=== PATIENT | male | born 1995 | race African-American/Black ===

== ENCOUNTER 2023-02-12 00:35 | Inpatient (IN) | payer SELFPAY ==
[2023-02-12] MEDS ORDERED: Acetaminophen 500 MG TAB ONE (01:01)
[2023-02-12 03:00] LABS: #Basophils 0.1 thou/uL (0.0-0.2); #Eosinphils 0.4 thou/uL (0.0-0.7); #Monocytes 0.7 thou/uL (0.11-0.59); #Neutrophils 2.6 thou/uL (1.40-6.50); %Eosinophils 6.9 % (0.0-10.0); %Lymphocytes 38.7 % (21.0-51.0); %Monocytes 11.3 % (0.0-10.0); %Neutrophils 41.6 % (42.0-75.0); Hematocrit 49.7 % (42.0-52.0); Hemoglobin 17.1 g/dL (14.0-18.0); Mean Corpuscular HGB CONC 34.4 g/dL (32.0-36.0); Mean Corpuscular Hemoglobin 30.7 pg (27.0-31.0); Mean Corpuscular Volume 89.2 fl (78.0-98.0); Mean Platelet Volume 11.4 fL (7.4-10.4); Platelet Count 260 10x3/uL (130-400); RBC Distribution Width 12.9 % (11.5-14.5); Red Blood Cell (RBC) Count 5.57 mill/uL (4.70-6.10); White Blood Cell (WBC) Count 6.1 10x3/uL (4.8-10.8)
[2023-02-12] MEDS ORDERED: Acetaminophen 325 MG TAB PO PRN (03:00)
[2023-02-12] MEDS ORDERED: Ondansetron ODT 4 MG TAB SL PRN (03:00)
[2023-02-12] MEDS ORDERED: Ondansetron PF 4 MG/2 ML Vial IVP PRN (03:00)
[2023-02-12 03:14] LABS: ALT (SGPT) 62 U/L (8-55); AST (SGOT) 76 U/L (5-34); Albumin 4.2 g/dL (3.5-5.0); Alkaline Phosphatase 95 U/L (40-110); Anion Gap 14 mmol/L (10-20); BUN (Urea Nitrogen) 6 mg/dL (8.9-20.6); Bilirubin, Total 0.3 mg/dL (0.2-1.2); Calc. Creatinine Clearance 0 mL/min (70-130); Calcium 9.2 mg/dL (7.8-10.44); Carbon Dioxide 26 mmol/L (22-29); Chloride 104 mmol/L (98-107); Estimated GFR 57; Globulin 2.7 g/dL (2.4-3.5); Glucose 110 mg/dL (70-105); Potassium 4.1 mmol/L (3.5-5.1); Protein, Total 6.9 g/dL (6.0-8.3); Sodium 140 mmol/L (136-145)
[2023-02-12] MEDS ORDERED: Ondansetron ODT 4 MG TAB PO PRN (03:28)
[2023-02-12 03:41] VITALS: BMI 35.2
[2023-02-12] MEDS: Lactated Ringer's 1,000 ML IV SCH ×4 (03:51→13:15)
[2023-02-12 05:40] LABS: #Basophils 0.1 thou/uL (0.0-0.2); #Eosinphils 0.4 thou/uL (0.0-0.7); #Monocytes 0.6 thou/uL (0.11-0.59); #Neutrophils 2.1 thou/uL (1.40-6.50); %Basophils 0.9 % (0.0-1.0); %Eosinophils 6.9 % (0.0-10.0); %Lymphocytes 41.5 % (21.0-51.0); %Monocytes 11.6 % (0.0-10.0); %Neutrophils 38.5 % (42.0-75.0); Hematocrit 45.5 % (42.0-52.0); Hemoglobin 15.2 g/dL (14.0-18.0); Mean Corpuscular HGB CONC 33.4 g/dL (32.0-36.0); Mean Corpuscular Hemoglobin 30.4 pg (27.0-31.0); Mean Platelet Volume 10.8 fL (7.4-10.4); Platelet Count 220 10x3/uL (130-400); RBC Distribution Width 12.8 % (11.5-14.5); White Blood Cell (WBC) Count 5.4 10x3/uL (4.8-10.8)
[2023-02-12 12:15] VITALS: BP 149/93; TEMP 97.8
[2023-02-12 12:41] LABS: Anion Gap 13 mmol/L (10-20); BUN (Urea Nitrogen) 5 mg/dL (8.9-20.6); Calc. Creatinine Clearance 129 mL/min (70-130); Calcium 8.8 mg/dL (7.8-10.44); Carbon Dioxide 26 mmol/L (22-29); Chloride 105 mmol/L (98-107); Estimated GFR 65; Glucose 91 mg/dL (70-105); Potassium 4.3 mmol/L (3.5-5.1); Sodium 140 mmol/L (136-145)
[2023-02-12] MEDS ORDERED: Lactated Ringer's 1,000 ML IV SCH (13:00)
== END 2023-02-12 15:28 | disposition home or self-care (01) | DRG 558 ==
LOC: ERS 00:35 → SURG A 02:47
PROVIDERS: ADMIT Family Medicine; ATTEND Family Medicine
DX: M62.82 Rhabdomyolysis (principal); N17.9 Acute kidney failure, unspecified
CPT/HCPCS: 36415; 70450; 80053; 82550; 85025; 93005; J7120

== ENCOUNTER 2023-02-21 18:27 | Observation (INO) | payer SELFPAY ==
[~2023-02-21 18:27] MED LIST: Iopamidol-370 76% 500 ML MDV (1 ML CHARGE) ONE
[2023-02-21 18:58] LABS: #Basophils 0.1 thou/uL (0.0-0.2); #Eosinphils 0.3 thou/uL (0.0-0.7); #Monocytes 0.7 thou/uL (0.11-0.59); #Neutrophils 3.7 thou/uL (1.40-6.50); %Basophils 0.9 % (0.0-1.0); %Eosinophils 3.9 % (0.0-10.0); %Lymphocytes 28.9 % (21.0-51.0); %Monocytes 10.1 % (0.0-10.0); %Neutrophils 55.7 % (42.0-75.0); Hematocrit 50.9 % (42.0-52.0); Hemoglobin 17.7 g/dL (14.0-18.0); Mean Corpuscular HGB CONC 34.8 g/dL (32.0-36.0); Mean Corpuscular Hemoglobin 30.8 pg (27.0-31.0); Mean Corpuscular Volume 88.5 fl (78.0-98.0); Mean Platelet Volume 10.6 fL (7.4-10.4); Platelet Count 319 10x3/uL (130-400); RBC Distribution Width 12.7 % (11.5-14.5); Red Blood Cell (RBC) Count 5.75 mill/uL (4.70-6.10); White Blood Cell (WBC) Count 6.6 10x3/uL (4.8-10.8)
[2023-02-21] MEDS ORDERED: Ondansetron PF 4 MG/2 ML Vial ONE (18:59)
[2023-02-21] MEDS ORDERED: Ketorolac Tromethamine 30 MG/ML VIAL ONE (18:59)
[2023-02-21 19:27] LABS: ALT (SGPT) 60 U/L (8-55); AST (SGOT) 51 U/L (5-34); Albumin 4.7 g/dL (3.5-5.0); Alkaline Phosphatase 108 U/L (40-110); Anion Gap 14 mmol/L (10-20); BUN (Urea Nitrogen) 14 mg/dL (8.9-20.6); CK (CPK) 1727 U/L (30-200); Calc. Creatinine Clearance 0 mL/min (70-130); Calcium 9.5 mg/dL (7.8-10.44); Carbon Dioxide 25 mmol/L (22-29); Chloride 105 mmol/L (98-107); Estimated GFR 52; Globulin 3.5 g/dL (2.4-3.5); Glucose 98 mg/dL (70-105); Potassium 4.3 mmol/L (3.5-5.1); Protein, Total 8.2 g/dL (6.0-8.3); Sodium 140 mmol/L (136-145)
[2023-02-21 19:29] LABS: Bacteria/HPF None Seen HPF (None Seen); Bilirubin Negative (Negative); Blood, Urine Negative (Negative); CAUTI Indications for Culture Pelvic or flank pain; Clarity Clear (Clear); Glucose, Urine (Dipstick) Normal (Negative); Ketone, Urine Negative (Negative); Leukocyte 75 Leu/uL (Negative); Nitrite Negative (Negative); Protein, Urine (Dipstick) 50 mg/dL (Neg-Trace); RBC/HPF 0-3 HPF (0-3); Specific Gravity, Urine 1.035 (1.002-1.036); Squamous Epithelial None Seen HPF (0-3); WBC/HPF 21-50 HPF (0-3); pH, Urine 6.5 (5.0-9.0)
[2023-02-21 19:30] LABS: Urine Culture Reflex Yes Yes
[2023-02-21] MEDS ORDERED: Lactated Ringer's 1,000 ML IV SCH (22:30)
[2023-02-21 22:57] VITALS: BMI 34.9
[2023-02-21 23:03] LABS: Amphetamine Not Detected (NotDetected); Barbiturates Screen Not Detected (NotDetected); Benzodiazepine Screen Not Detected (NotDetected); Cocaine Metabolite Screen Not Detected (NotDetected); Methadone Not Detected (NotDetected); Methamphetamine Not Detected (NotDetected); Opiate Screen Not Detected (NotDetected); Oxycodone Screen Not Detected (NotDetected); Phencyclidine (PCP) Not Detected (NotDetected); THC/Cannabinoid Screen Not Detected (NotDetected); Tricyclic Screen Not Detected (NotDetected)
[2023-02-21] MEDS: Lactated Ringer's 1,000 ML IV SCH (23:37)
[2023-02-22] MEDS: Lactated Ringer's 1,000 ML IV SCH ×5 (04:08→22:20)
[2023-02-22 06:11] LABS: ALT (SGPT) 44 U/L (8-55); AST (SGOT) 37 U/L (5-34); Albumin 3.9 g/dL (3.5-5.0); Alkaline Phosphatase 94 U/L (40-110); Anion Gap 11 mmol/L (10-20); BUN (Urea Nitrogen) 13 mg/dL (8.9-20.6); Bilirubin, Total 1.1 mg/dL (0.2-1.2); CK (CPK) 1213 U/L (30-200); Calc. Creatinine Clearance 110 mL/min (70-130); Calcium 8.7 mg/dL (7.8-10.44); Carbon Dioxide 27 mmol/L (22-29); Chloride 105 mmol/L (98-107); Estimated GFR 56; Globulin 2.6 g/dL (2.4-3.5); Glucose 79 mg/dL (70-105); Potassium 4.3 mmol/L (3.5-5.1); Protein, Total 6.5 g/dL (6.0-8.3); Sodium 139 mmol/L (136-145)
[2023-02-22 06:13] LABS: Chlam.trachomatis by PCR,Urine Not Detected (NotDetected); GC N.gonorrhoeae PCR,UrineVOID Not Detected (NotDetected)
[2023-02-22 13:51] LABS: Creatinine, Urine 100.26 mg/dL (63-166)
[2023-02-22 17:05] LABS: ANA Symphony (Qualitative) Negative (Negative); ANA Symphony (Quantitative) 0.4 Ratio (< 0.7 Negative); dsDNA IgG Antibody 1.3 IU/mL (<10 Negative)
[2023-02-23] MEDS: Lactated Ringer's 1,000 ML IV SCH ×4 (00:05→11:14)
[2023-02-23 07:52] LABS: ALT (SGPT) 40 U/L (8-55); AST (SGOT) 32 U/L (5-34); Albumin 3.6 g/dL (3.5-5.0); Alkaline Phosphatase 84 U/L (40-110); Anion Gap 13 mmol/L (10-20); BUN (Urea Nitrogen) 13 mg/dL (8.9-20.6); Bilirubin, Total 0.4 mg/dL (0.2-1.2); Calc. Creatinine Clearance 111 mL/min (70-130); Calcium 8.5 mg/dL (7.8-10.44); Carbon Dioxide 24 mmol/L (22-29); Chloride 104 mmol/L (98-107); Estimated GFR 56; Globulin 2.8 g/dL (2.4-3.5); Glucose 99 mg/dL (70-105); Potassium 4.2 mmol/L (3.5-5.1); Protein, Total 6.4 g/dL (6.0-8.3); Sodium 137 mmol/L (136-145)
[2023-02-23 12:01] VITALS: BP 162/96; TEMP 97.4
== END 2023-02-23 14:30 | disposition home or self-care (01) ==
LOC: ERS 18:27 → SURG A 21:38
PROVIDERS: ADMIT Family Medicine; ATTEND Family Medicine
DX: R10.9 Unspecified abdominal pain (principal); N17.9 Acute kidney failure, unspecified; M62.82 Rhabdomyolysis; R30.0 Dysuria; R74.01 Elevation of levels of liver transaminase levels; Z79.52 Long term (current) use of systemic steroids; Z79.899 Other long term (current) drug therapy
CPT/HCPCS: 36415; 74177; 76770; 80053; 80306; 81001; 82550; 82570; 84300; 85025; 86038; 86225; 87086; 87491; 87591; 87661; 96361; 96374; 96375; G0378; J1885; J2405; J7120; Q9967

== ENCOUNTER 2023-07-31 12:18 | Emergency (ER) | payer OTHER, SELFPAY ==
[2023-07-31 12:41] LABS: #Eosinphils 0.2 thou/uL (0.0-0.7); #Monocytes 0.4 thou/uL (0.11-0.59); #Neutrophils 3.1 thou/uL (1.40-6.50); %Basophils 0.7 % (0.0-1.0); %Eosinophils 4.3 % (0.0-10.0); %Lymphocytes 31.2 % (21.0-51.0); %Monocytes 7.7 % (0.0-10.0); %Neutrophils 55.7 % (42.0-75.0); Hematocrit 45.5 % (42.0-52.0); Hemoglobin 15.6 g/dL (14.0-18.0); Mean Corpuscular HGB CONC 34.3 g/dL (32.0-36.0); Mean Corpuscular Hemoglobin 31.6 pg (27.0-31.0); Mean Corpuscular Volume 92.3 fl (78.0-98.0); Mean Platelet Volume 10.3 fL (7.4-10.4); Platelet Count 261 10x3/uL (130-400); RBC Distribution Width 12.2 % (11.5-14.5); Red Blood Cell (RBC) Count 4.93 mill/uL (4.70-6.10); White Blood Cell (WBC) Count 5.6 10x3/uL (4.8-10.8)
[2023-07-31 13:07] LABS: ALT (SGPT) 33 U/L (8-55); AST (SGOT) 34 U/L (5-34); Albumin 4.3 g/dL (3.5-5.0); Alkaline Phosphatase 108 U/L (40-110); Anion Gap 11 mmol/L (10-20); BUN (Urea Nitrogen) 10 mg/dL (8.9-20.6); Bilirubin, Total 0.5 mg/dL (0.2-1.2); Calc. Creatinine Clearance 0 mL/min (70-130); Calcium 9.1 mg/dL (7.8-10.44); Carbon Dioxide 26 mmol/L (22-29); Chloride 105 mmol/L (98-107); Estimated GFR 81; Glucose 93 mg/dL (70-105); Lipase 37 U/L (8-78); Potassium 4.1 mmol/L (3.5-5.1); Protein, Total 7.3 g/dL (6.0-8.3); Sodium 138 mmol/L (136-145)
[2023-07-31 13:32] LABS: Bilirubin Negative (Negative); Blood, Urine Negative (Negative); CAUTI Indications for Culture Pelvic or flank pain; Clarity Clear (Clear); Glucose, Urine (Dipstick) Normal (Negative); Ketone, Urine Negative (Negative); Leukocyte Negative Leu/uL (Negative); Nitrite Negative (Negative); Protein, Urine (Dipstick) Negative (Neg-Trace); RBC/HPF 0-3 HPF (0-3); Specific Gravity, Urine 1.021 (1.002-1.036); Squamous Epithelial 0-3 HPF (0-3); Urobilinogen Normal mg/dL (Less than 2); WBC/HPF 0-3 HPF (0-3); pH, Urine 6.5 (5.0-9.0)
[2023-07-31 13:33] LABS: Bacteria/HPF 1+ HPF (None Seen)
[2023-07-31 13:35] LABS: Urine Culture Reflex No No
== END 2023-07-31 15:36 | disposition home or self-care (01) ==
LOC: ERS 12:18
DX: M62.82 Rhabdomyolysis (principal); R00.0 Tachycardia, unspecified
CPT/HCPCS: 36415; 80053; 81001; 82550; 83690; 85025; 96360; 96361

== ENCOUNTER 2023-10-02 11:42 | Emergency (ER) | payer OTHER ==
[2023-10-02 12:07] LABS: #Basophils 0.07 10x3/uL (0.0-0.2); %Basophils 1.3 % (0.0-1.0); %Eosinophils 6.8 % (0.0-10.0); %Lymphocytes 33.3 % (21.0-51.0); %Monocytes 8.8 % (0.0-10.0); %Neutrophils 49.3 % (42.0-75.0); Hematocrit 43.5 % (42.0-52.0); Hemoglobin 15.7 g/dL (14.0-18.0); Mean Corpuscular HGB CONC 36.1 g/dL (32.0-36.0); Mean Corpuscular Hemoglobin 31.3 pg (27.0-31.0); Mean Corpuscular Volume 86.8 fL (78.0-98.0); Mean Platelet Volume 10.3 fL (7.4-10.4); Platelet Count 261 10x3/uL (130-400); Red Blood Cell (RBC) Count 5.01 mill/uL (4.70-6.10)
[2023-10-02 12:21] LABS: ALT (SGPT) 66 U/L (8-55); AST (SGOT) 40 U/L (5-34); Albumin 4.4 g/dL (3.5-5.0); Alkaline Phosphatase 116 U/L (40-110); Anion Gap 12 mmol/L (10-20); BUN (Urea Nitrogen) 11 mg/dL (8.9-20.6); Bilirubin, Total 0.7 mg/dL (0.2-1.2); Calc. Creatinine Clearance 0 mL/min (70-130); Calcium 9.8 mg/dL (7.8-10.44); Carbon Dioxide 27 mmol/L (22-29); Chloride 102 mmol/L (98-107); Estimated GFR 82; Globulin 3.2 g/dL (2.4-3.5); Glucose 125 mg/dL (70-105); Lipase 27 U/L (8-78); Potassium 4.3 mmol/L (3.5-5.1); Protein, Total 7.6 g/dL (6.0-8.3); Sodium 137 mmol/L (136-145)
[2023-10-02 12:24] LABS: Troponin I 0.011 ng/mL (< 0.028)
== END 2023-10-02 13:45 | disposition home or self-care (01) ==
LOC: ERS 11:42
DX: R07.9 Chest pain, unspecified (principal); Z55.6 Problems related to health literacy; Z75.8 Other problems related to medical facilities and other health care
CPT/HCPCS: 36415; 71045; 80053; 83690; 84484; 85025; 93005

== ENCOUNTER 2023-12-18 18:06 | Emergency (ER) | payer OTHER | END 2023-12-18 19:01 | disposition home or self-care (01) | LOC: ERS 18:06 | DX: K04.7 Periapical abscess without sinus (principal) | CPT/HCPCS: 99282 ==

== ENCOUNTER 2024-01-24 19:37 | Emergency (ER) | payer OTHER | END 2024-01-24 20:55 | disposition home or self-care (01) | LOC: ERS 19:37 | DX: S61.012A Laceration without foreign body of left thumb without damage to nail, initial encounter (principal); W26.0XXA Contact with knife, initial encounter | CPT/HCPCS: 99282 ==

== ENCOUNTER 2024-02-21 16:44 | Emergency (ER) | payer OTHER ==
[2024-02-21 17:27] LABS: #Basophils 0.04 10x3/uL (0.0-0.2); %Basophils 0.7 % (0.0-1.0); %Eosinophils 6.4 % (0.0-10.0); %Lymphocytes 34.1 % (21.0-51.0); %Monocytes 7.6 % (0.0-10.0); %Neutrophils 50.9 % (42.0-75.0); Hematocrit 40.2 % (42.0-52.0); Hemoglobin 14.4 g/dL (14.0-18.0); Mean Corpuscular HGB CONC 35.8 g/dL (32.0-36.0); Mean Corpuscular Hemoglobin 30.8 pg (27.0-31.0); Mean Corpuscular Volume 85.9 fL (78.0-98.0); Mean Platelet Volume 10.1 fL (7.4-10.4); Platelet Count 261 10x3/uL (130-400); RBC Distribution Width 12.3 % (11.5-14.5); Red Blood Cell (RBC) Count 4.68 mill/uL (4.70-6.10)
[2024-02-21 17:40] LABS: ALT (SGPT) 40 U/L (8-55); AST (SGOT) 31 U/L (5-34); Alkaline Phosphatase 101 U/L (40-110); Anion Gap 11 mmol/L (10-20); BUN (Urea Nitrogen) 12 mg/dL (8.9-20.6); Bilirubin, Total 0.5 mg/dL (0.2-1.2); CK (CPK) 795 U/L (30-200); Calc. Creatinine Clearance 0 mL/min (70-130); Calcium 9.1 mg/dL (7.8-10.44); Carbon Dioxide 22 mmol/L (22-29); Chloride 108 mmol/L (98-107); Estimated GFR 89; Glucose 114 mg/dL (70-105); Potassium 3.5 mmol/L (3.5-5.1); Sodium 137 mmol/L (136-145)
[2024-02-21 18:49] LABS: Bacteria/HPF None Seen HPF (None Seen); Bilirubin Negative (Negative); Blood, Urine Negative (Negative); CAUTI Indications for Culture Fever or rigors; Clarity Clear (Clear); Glucose, Urine (Dipstick) Normal (Negative); Ketone, Urine Negative (Negative); Leukocyte Negative Leu/uL (Negative); Nitrite Negative (Negative); Protein, Urine (Dipstick) Negative (Neg-Trace); RBC/HPF None Seen HPF (0-3); Specific Gravity, Urine 1.026 (1.002-1.036); Squamous Epithelial None Seen HPF (0-3); WBC/HPF 0-3 HPF (0-3); pH, Urine 6.5 (5.0-9.0)
[2024-02-21 18:52] LABS: Urine Culture Reflex No No
== END 2024-02-21 20:27 | disposition home or self-care (01) ==
LOC: ERS 16:44
DX: T67.5XXA Heat exhaustion, unspecified, initial encounter (principal); E86.0 Dehydration; X32.XXXA Exposure to sunlight, initial encounter; Y93.02 Activity, running; Y92.89 Other specified places as the place of occurrence of the external cause
CPT/HCPCS: 36415; 80053; 81001; 82550; 83605; 85025; 99283

== ENCOUNTER 2024-04-03 15:07 | Emergency (ER) | payer OTHER ==
[2024-04-03 15:34] LABS: Bacteria/HPF None Seen HPF (None Seen); Bilirubin Negative (Negative); Blood, Urine Negative (Negative); CAUTI Indications for Culture Pelvic or flank pain; Clarity Clear (Clear); Glucose, Urine (Dipstick) Normal (Negative); Ketone, Urine Trace mg/dL (Negative); Leukocyte Negative Leu/uL (Negative); Nitrite Negative (Negative); Protein, Urine (Dipstick) 10 mg/dL (Neg-Trace); RBC/HPF 0-3 HPF (0-3); Specific Gravity, Urine 1.031 (1.002-1.036); Squamous Epithelial None Seen HPF (0-3); WBC/HPF 0-3 HPF (0-3)
[2024-04-03 15:36] LABS: Urine Culture Reflex No No
== END 2024-04-03 15:50 | disposition home or self-care (01) ==
LOC: ERS 15:07
DX: K04.7 Periapical abscess without sinus (principal); R10.31 Right lower quadrant pain
CPT/HCPCS: 81001; 99283

== ENCOUNTER 2024-04-14 19:47 | Emergency (ER) | payer OTHER ==
[2024-04-14 20:45] LABS: Bacteria/HPF None Seen HPF (None Seen); Bilirubin Negative (Negative); Blood, Urine Negative (Negative); CAUTI Indications for Culture Dysuria,urgency,freq; Clarity Clear (Clear); Glucose, Urine (Dipstick) Normal (Negative); Ketone, Urine Negative (Negative); Leukocyte Negative Leu/uL (Negative); Nitrite Negative (Negative); Protein, Urine (Dipstick) 10 mg/dL (Neg-Trace); RBC/HPF None Seen HPF (0-3); Specific Gravity, Urine 1.029 (1.002-1.036); Squamous Epithelial 0-3 HPF (0-3); WBC/HPF 0-3 HPF (0-3)
[2024-04-14 20:46] LABS: Urine Culture Reflex No No
[2024-04-14 21:16] LABS: #Basophils 0.04 10x3/uL (0.0-0.2); %Basophils 0.5 % (0.0-1.0); %Eosinophils 3.2 % (0.0-10.0); %Lymphocytes 33.7 % (21.0-51.0); %Monocytes 9.4 % (0.0-10.0); %Neutrophils 52.8 % (42.0-75.0); Hematocrit 43.3 % (42.0-52.0); Mean Corpuscular HGB CONC 34.6 g/dL (32.0-36.0); Mean Corpuscular Hemoglobin 30.7 pg (27.0-31.0); Mean Corpuscular Volume 88.7 fL (78.0-98.0); Platelet Count 325 10x3/uL (130-400); RBC Distribution Width 12.2 % (11.5-14.5); Red Blood Cell (RBC) Count 4.88 mill/uL (4.70-6.10)
[2024-04-14 21:36] LABS: Troponin I Less than 0.010 ng/mL (< 0.028)
[2024-04-14 21:54] LABS: ALT (SGPT) 26 U/L (8-55); AST (SGOT) 25 U/L (5-34); Albumin 4.3 g/dL (3.5-5.0); Alkaline Phosphatase 105 U/L (40-110); Anion Gap 11 mmol/L (10-20); BUN (Urea Nitrogen) 13 mg/dL (8.9-20.6); Bilirubin, Total 0.8 mg/dL (0.2-1.2); CK (CPK) 478 U/L (30-200); Calc. Creatinine Clearance 0 mL/min (70-130); Calcium 9.7 mg/dL (7.8-10.44); Carbon Dioxide 24 mmol/L (22-29); Chloride 108 mmol/L (98-107); Estimated GFR 72; Glucose 100 mg/dL (70-105); Magnesium 2.1 mg/dL (1.6-2.6); Potassium 4.1 mmol/L (3.5-5.1); Protein, Total 7.3 g/dL (6.0-8.3); Sodium 139 mmol/L (136-145)
== END 2024-04-15 00:19 | disposition home or self-care (01) ==
LOC: ERS 19:47
DX: M62.82 Rhabdomyolysis (principal); R53.83 Other fatigue; M54.50 Low back pain, unspecified; N18.30 Chronic kidney disease, stage 3 unspecified
CPT/HCPCS: 36415; 71046; 80053; 81001; 82550; 83735; 83880; 84484; 85025; 87086; 93005; 96360

== ENCOUNTER 2024-05-14 18:34 | Emergency (ER) | payer OTHER, BC ==
[2024-05-14 19:13] LABS: #Basophils 0.05 10x3/uL (0.0-0.2); %Basophils 0.8 % (0.0-1.0); %Lymphocytes 38.2 % (21.0-51.0); %Neutrophils 43.7 % (42.0-75.0); Hematocrit 40.8 % (42.0-52.0); Hemoglobin 14.3 g/dL (14.0-18.0); Mean Corpuscular Hemoglobin 31.1 pg (27.0-31.0); Mean Corpuscular Volume 88.7 fL (78.0-98.0); Mean Platelet Volume 10.2 fL (7.4-10.4); Platelet Count 301 10x3/uL (130-400); RBC Distribution Width 12.7 % (11.5-14.5)
[2024-05-14 19:32] LABS: ALT (SGPT) 29 U/L (8-55); AST (SGOT) 32 U/L (5-34); Albumin 4.1 g/dL (3.5-5.0); Alkaline Phosphatase 123 U/L (40-110); Anion Gap 12 mmol/L (10-20); BUN (Urea Nitrogen) 10 mg/dL (8.9-20.6); Bilirubin, Total 0.5 mg/dL (0.2-1.2); CK (CPK) 871 U/L (30-200); Calc. Creatinine Clearance 0 mL/min (70-130); Calcium 8.8 mg/dL (7.8-10.44); Carbon Dioxide 24 mmol/L (22-29); Chloride 109 mmol/L (98-107); Estimated GFR 98; Glucose 70 mg/dL (70-105); Potassium 3.9 mmol/L (3.5-5.1); Protein, Total 7.1 g/dL (6.0-8.3); Sodium 141 mmol/L (136-145)
[2024-05-14 20:58] LABS: Bacteria/HPF None Seen HPF (None Seen); Bilirubin Negative (Negative); Blood, Urine Negative (Negative); CAUTI Indications for Culture Alt mental st,lethar; Clarity Clear (Clear); Glucose, Urine (Dipstick) Normal (Negative); Ketone, Urine Negative (Negative); Leukocyte Negative Leu/uL (Negative); Nitrite Negative (Negative); Protein, Urine (Dipstick) 10 mg/dL (Neg-Trace); RBC/HPF 0-3 HPF (0-3); Specific Gravity, Urine 1.028 (1.002-1.036); Squamous Epithelial 0-3 HPF (0-3); WBC/HPF 0-3 HPF (0-3); pH, Urine 7.5 (5.0-9.0)
[2024-05-14 21:03] LABS: Urine Culture Reflex No No
== END 2024-05-15 00:01 | disposition home or self-care (01) ==
LOC: ERS 18:34
DX: M62.82 Rhabdomyolysis (principal); R10.9 Unspecified abdominal pain; N18.30 Chronic kidney disease, stage 3 unspecified
CPT/HCPCS: 36415; 74176; 80053; 81001; 82550; 85025

== ENCOUNTER 2024-06-07 17:01 | Emergency (ER) | payer OTHER ==
[2024-06-07] MEDS ORDERED: Acetaminophen 325 MG TAB ONE (18:23)
== END 2024-06-07 18:33 | disposition home or self-care (01) ==
LOC: ERS 17:01
DX: M65.4 Radial styloid tenosynovitis [de Quervain] (principal); X50.0XXA Overexertion from strenuous movement or load, initial encounter
CPT/HCPCS: 99282

== ENCOUNTER 2024-07-21 17:20 | Emergency (ER) | payer OTHER, BC ==
[2024-07-21 18:14] LABS: #Basophils 0.05 10x3/uL (0.0-0.2); %Basophils 0.7 % (0.0-1.0); %Eosinophils 5.3 % (0.0-10.0); %Lymphocytes 32.5 % (21.0-51.0); %Monocytes 9.5 % (0.0-10.0); %Neutrophils 51.4 % (42.0-75.0); Hematocrit 41.8 % (42.0-52.0); Hemoglobin 14.8 g/dL (14.0-18.0); Mean Corpuscular HGB CONC 35.4 g/dL (32.0-36.0); Mean Corpuscular Hemoglobin 30.6 pg (27.0-31.0); Mean Corpuscular Volume 86.4 fL (78.0-98.0); Platelet Count 301 10x3/uL (130-400); Red Blood Cell (RBC) Count 4.84 mill/uL (4.70-6.10)
[2024-07-21 18:30] LABS: ALT (SGPT) 28 U/L (8-55); AST (SGOT) 24 U/L (5-34); Albumin 4.2 g/dL (3.5-5.0); Alkaline Phosphatase 104 U/L (40-110); Anion Gap 11 mmol/L (10-20); BUN (Urea Nitrogen) 15 mg/dL (8.9-20.6); Bilirubin, Total 0.3 mg/dL (0.2-1.2); CK (CPK) 477 U/L (30-200); Calc. Creatinine Clearance 0 mL/min (70-130); Calcium 9.4 mg/dL (7.8-10.44); Carbon Dioxide 27 mmol/L (22-29); Chloride 104 mmol/L (98-107); Estimated GFR 88; Globulin 3.6 g/dL (2.4-3.5); Glucose 85 mg/dL (70-105); Potassium 4.1 mmol/L (3.5-5.1); Protein, Total 7.8 g/dL (6.0-8.3); Sodium 138 mmol/L (136-145)
[2024-07-21 19:14] LABS: Bacteria/HPF None Seen HPF (None Seen); Bilirubin Negative (Negative); Blood, Urine Negative (Negative); CAUTI Indications for Culture Dysuria,urgency,freq; Clarity Clear (Clear); Glucose, Urine (Dipstick) Normal (Negative); Ketone, Urine Negative (Negative); Leukocyte Negative Leu/uL (Negative); Nitrite Negative (Negative); Protein, Urine (Dipstick) Negative (Neg-Trace); RBC/HPF 0-3 HPF (0-3); Specific Gravity, Urine 1.021 (1.002-1.036); Squamous Epithelial None Seen HPF (0-3); Urobilinogen Normal mg/dL (Less than 2); WBC/HPF 0-3 HPF (0-3); pH, Urine 6.5 (5.0-9.0)
[2024-07-21 19:18] LABS: Urine Culture Reflex No No
== END 2024-07-21 19:58 | disposition home or self-care (01) ==
LOC: ERS 17:20
DX: M54.50 Low back pain, unspecified (principal); R10.9 Unspecified abdominal pain; R97.8 Other abnormal tumor markers; N18.30 Chronic kidney disease, stage 3 unspecified
CPT/HCPCS: 36415; 80053; 81001; 82550; 85025; 99283

== ENCOUNTER 2025-02-23 07:41 | Emergency (ER) | payer OTHER ==
[2025-02-23] MEDS ORDERED: Ketorolac Tromethamine 30 MG (1 mL) VIAL ONE (08:30)
[2025-02-23 08:36] LABS: #Basophils 0.04 10x3/uL (0.0-0.2); #Eosinophils 0.33 10x3/uL (0.0-0.7); #Monocytes 0.59 10x3/uL (0.11-0.59); #Neutrophils 2.75 10x3/uL (1.40-6.50); %Basophils 0.8 % (0.0-1.0); %Eosinophils 6.3 % (0.0-10.0); %Lymphocytes 28.8 % (21.0-51.0); %Monocytes 11.3 % (0.0-10.0); %Neutrophils 52.4 % (42.0-75.0); Hematocrit 43.1 % (42.0-52.0); Hemoglobin 15.1 g/dL (14.0-18.0); Mean Corpuscular Hemoglobin 30.2 pg (27.0-31.0); Mean Corpuscular Volume 86.2 fL (78.0-98.0); Platelet Count 275 10x3/uL (130-400); Red Blood Cell (RBC) Count 5.00 mill/uL (4.70-6.10); White Blood Cell (WBC) Count 5.24 10x3/uL (4.8-10.8)
[2025-02-23 09:00] LABS: ALT (SGPT) 39 U/L (Less than 45); AST (SGOT) 36 U/L (11-34); Albumin 4.4 g/dL (3.1-4.5); Alkaline Phosphatase 97 U/L (40-110); Anion Gap 10 mmol/L (10-20); BUN (Urea Nitrogen) 13 mg/dL (8.9-20.6); Bilirubin, Total 0.3 mg/dL (0.3-1.2); CK (CPK) 1003 U/L (30-200); Calc. Creatinine Clearance 0 mL/min (70-130); Calcium 9.1 mg/dL (7.8-10.44); Carbon Dioxide 25 mmol/L (22-29); Chloride 108 mmol/L (98-107); Globulin 2.9 g/dL (2.4-3.5); Glucose 98 mg/dL (70-105); Magnesium 2.1 mg/dL (1.6-2.6); Potassium 4.3 mmol/L (3.5-5.1); Sodium 139 mmol/L (136-145)
[2025-02-23 11:26] LABS: Bacteria/HPF None Seen HPF (None Seen); CAUTI Indications for Culture Pelvic or flank pain; Glucose, Urine (Dipstick) Normal (Negative); Leukocyte Negative Leu/uL (Negative); Protein, Urine (Dipstick) Negative (Neg-Trace); RBC/HPF None Seen HPF (0-3); Specific Gravity, Urine 1.012 (1.002-1.036); WBC/HPF None Seen HPF (0-3)
[2025-02-23 11:32] LABS: Urine Culture Reflex No No
== END 2025-02-23 12:18 | disposition home or self-care (01) ==
LOC: ERS 07:41
DX: M62.82 Rhabdomyolysis (principal); N18.30 Chronic kidney disease, stage 3 unspecified
CPT/HCPCS: 36415; 80053; 81001; 82550; 83605; 83735; 84484; 85025; 93005; 96360; J1885

== ENCOUNTER 2025-04-06 13:01 | Emergency (ER) | payer OTHER ==
[2025-04-06 13:41] LABS: Bacteria/HPF None Seen HPF (None Seen); CAUTI Indications for Culture Pelvic or flank pain; Glucose, Urine (Dipstick) Normal (Negative); Leukocyte Negative Leu/uL (Negative); Protein, Urine (Dipstick) Negative (Neg-Trace); RBC/HPF 0-3 HPF (0-3); Specific Gravity, Urine 1.011 (1.002-1.036); WBC/HPF None Seen HPF (0-3)
[2025-04-06 13:43] LABS: Urine Culture Reflex No No
[2025-04-06 14:02] LABS: #Basophils 0.04 10x3/uL (0.0-0.2); #Eosinophils 0.11 10x3/uL (0.0-0.7); #Monocytes 0.52 10x3/uL (0.11-0.59); #Neutrophils 2.51 10x3/uL (1.40-6.50); %Basophils 0.9 % (0.0-1.0); %Eosinophils 2.5 % (0.0-10.0); %Lymphocytes 28.6 % (21.0-51.0); %Monocytes 11.6 % (0.0-10.0); %Neutrophils 56.2 % (42.0-75.0); Hematocrit 40.8 % (42.0-52.0); Hemoglobin 14.5 g/dL (14.0-18.0); Mean Corpuscular Hemoglobin 30.7 pg (27.0-31.0); Mean Corpuscular Volume 86.3 fL (78.0-98.0); Platelet Count 253 10x3/uL (130-400); Red Blood Cell (RBC) Count 4.73 mill/uL (4.70-6.10); White Blood Cell (WBC) Count 4.47 10x3/uL (4.8-10.8)
[2025-04-06 14:19] LABS: ALT (SGPT) 28 U/L (Less than 45); AST (SGOT) 29 U/L (11-34); Albumin 4.4 g/dL (3.1-4.5); Alkaline Phosphatase 104 U/L (40-110); Anion Gap 13 mmol/L (10-20); BUN (Urea Nitrogen) 9 mg/dL (8.9-20.6); Bilirubin, Total 0.5 mg/dL (0.3-1.2); CK (CPK) 501 U/L (30-200); Calc. Creatinine Clearance 0 mL/min (70-130); Calcium 9.4 mg/dL (7.8-10.44); Carbon Dioxide 24 mmol/L (22-29); Chloride 106 mmol/L (98-107); Globulin 3.2 g/dL (2.4-3.5); Glucose 109 mg/dL (70-105); Potassium 3.7 mmol/L (3.5-5.1); Sodium 139 mmol/L (136-145)
== END 2025-04-06 16:04 | disposition home or self-care (01) ==
LOC: ERS 13:01
DX: T67.9XXA Effect of heat and light, unspecified, initial encounter (principal)
CPT/HCPCS: 80053; 81001; 82550; 85025; 99284

== ENCOUNTER 2025-05-12 11:23 | Emergency (ER) | payer OTHER ==
[2025-05-12 12:01] LABS: Bacteria/HPF None Seen HPF (None Seen); CAUTI Indications for Culture Dysuria,urgency,freq; Glucose, Urine (Dipstick) Normal (Negative); Leukocyte Negative Leu/uL (Negative); Protein, Urine (Dipstick) Negative (Neg-Trace); RBC/HPF None Seen HPF (0-3); Specific Gravity, Urine 1.021 (1.002-1.036); WBC/HPF 0-3 HPF (0-3)
[2025-05-12 12:03] LABS: Urine Culture Reflex No No
[2025-05-12 12:44] LABS: #Basophils 0.05 10x3/uL (0.0-0.2); #Eosinophils 0.27 10x3/uL (0.0-0.7); #Monocytes 0.54 10x3/uL (0.11-0.59); #Neutrophils 2.65 10x3/uL (1.40-6.50); %Basophils 0.9 % (0.0-1.0); %Eosinophils 5.1 % (0.0-10.0); %Lymphocytes 33.6 % (21.0-51.0); %Monocytes 10.1 % (0.0-10.0); %Neutrophils 49.7 % (42.0-75.0); Hematocrit 43.6 % (42.0-52.0); Hemoglobin 15.2 g/dL (14.0-18.0); Mean Corpuscular Hemoglobin 30.0 pg (27.0-31.0); Mean Corpuscular Volume 86.2 fL (78.0-98.0); Platelet Count 279 10x3/uL (130-400); Red Blood Cell (RBC) Count 5.06 mill/uL (4.70-6.10); White Blood Cell (WBC) Count 5.33 10x3/uL (4.8-10.8)
[2025-05-12 13:03] LABS: ALT (SGPT) 35 U/L (Less than 45); AST (SGOT) 30 U/L (11-34); Albumin 4.3 g/dL (3.1-4.5); Alkaline Phosphatase 105 U/L (40-110); Anion Gap 11 mmol/L (10-20); BUN (Urea Nitrogen) 10 mg/dL (8.9-20.6); Bilirubin, Total 0.5 mg/dL (0.3-1.2); CK (CPK) 462 U/L (30-200); Calc. Creatinine Clearance 0 mL/min (70-130); Calcium 9.3 mg/dL (7.8-10.44); Carbon Dioxide 28 mmol/L (22-29); Chloride 104 mmol/L (98-107); Globulin 3.1 g/dL (2.4-3.5); Glucose 87 mg/dL (70-105); Potassium 4.1 mmol/L (3.5-5.1); Sodium 139 mmol/L (136-145)
== END 2025-05-12 13:33 | disposition home or self-care (01) ==
LOC: ERS 11:23
DX: R74.8 Abnormal levels of other serum enzymes (principal)
CPT/HCPCS: 80053; 81001; 82550; 85025; 99284; Q0162